=== PATIENT | female | born 2000 | race Hispanic/Latino ===

== ENCOUNTER 2021-06-21 17:10 | Emergency (ER) | payer OTHER ==
[~2021-06-21 17:10] MED LIST: Iopamidol 370 76% 100 ML VIAL ONE; Sodium Chloride 0.9% 1,000 ML BAG ONE; Sodium Chloride 0.9% 100 ML BAG ONE
[2021-06-21 18:35] LABS: Bilirubin Negative (Negative); Blood, Urine Large (Negative); Glucose, Urine (Dipstick) Negative (Negative); Ketone, Urine 80 mg/dL (Negative); Leukocyte Small (Negative); Nitrite Positive (Negative); Pregnancy Test - Urine (BHCG) Negative (Negative); Pregu Control Background? CLEAR/WHITE (CLR/WHITE); Pregu Control Bar Appear? YES (CONTROL BAR); Protein, Urine (Dipstick) 30 mg/dL (Neg-Trace); Specific Gravity 1.025 (1.002-1.036); Specific Gravity, Urine 1.025 (1.005-1.030); Urobilinogen 0.2 mg/dL (Less than 2)
[2021-06-21 18:36] LABS: Clarity Cloudy (Clear)
[2021-06-21 18:41] LABS: RBC/HPF 21-50 HPF (0-3)
[2021-06-21] MEDS ORDERED: Ketorolac Tromethamine 30 MG/ML VIAL ONE (18:41)
[2021-06-21 18:42] LABS: Bacteria/HPF 2+ HPF (None Seen)
[2021-06-21 18:58] LABS: #Lymphocytes 1.2 thou/uL (1.20-3.40); #Monocytes 0.6 thou/uL (0.11-0.59); #Neutrophils 4.7 thou/uL (1.40-6.50); %Basophils 0.6 % (0.0-1.0); %Eosinophils 0.3 % (0.0-10.0); %Lymphocytes 18.8 % (28.0-48.0); %Monocytes 8.4 % (0.0-4.0); %Neutrophils 71.9 % (31.0-61.0); Hemoglobin 13.9 g/dL (12.0-16.0); Mean Corpuscular HGB CONC 31.7 g/dL (32.0-36.0); Mean Corpuscular Hemoglobin 30.5 pg (25.0-35.0); Mean Corpuscular Volume 96.4 fL (78.0-98.0); Platelet Count 151 thou/uL (130-400); RBC Distribution Width 12.2 % (11.5-14.5); Red Blood Cell (RBC) Count 4.56 mill/uL (4.00-5.20); White Blood Cell (WBC) Count 6.6 thou/uL (4.8-10.8)
[2021-06-21 19:14] LABS: ALT (SGPT) 20 U/L (8-55); AST (SGOT) 22 U/L (5-30); Albumin 4.2 g/dL (3.5-5.0); Alkaline Phosphatase 55 U/L (40-100); Anion Gap 14 mmol/L (10-20); BUN (Urea Nitrogen) 10 mg/dL (8.4-21.0); Bilirubin, Total 0.2 mg/dL (0.2-1.2); Calc. Creatinine Clearance 0 mL/min (70-130); Calcium 9.1 mg/dL (7.8-10.44); Carbon Dioxide 24 mmol/L (22-29); Chloride 104 mmol/L (98-107); Globulin 3.3 g/dL (2.4-3.5); Glucose 97 mg/dL (70-105); Lipase 17 U/L (8-78); Potassium 3.3 mmol/L (3.5-5.1); Protein, Total 7.5 g/dL (6.0-8.3); Sodium 139 mmol/L (136-145)
[2021-06-21] MEDS ORDERED: cefTRIAXone\\ROCEPHIN 1 GM VIAL ONE (19:53)
== END 2021-06-21 20:40 | disposition home or self-care (01) ==
LOC: MADERS 17:10
DX: N30.00 Acute cystitis without hematuria (principal); R00.0 Tachycardia, unspecified
CPT/HCPCS: 74177; 80053; 81003; 81015; 81025; 83690; 85025; 87077; 87086; 87186; 96365; 96375; J0696; J1885; J3490; J7050; Q9967

== ENCOUNTER 2023-02-20 11:52 | Outpatient (CLI) | payer OTHER | END 2023-02-20 11:53 | disposition home or self-care (01) | LOC: MADLABBHPM 11:52 → MADLAB 11:53 | PROVIDERS: ATTEND Family Medicine | DX: Z34.02 Encounter for supervision of normal first pregnancy, second trimester (principal) | CPT/HCPCS: 87086 ==